=== PATIENT | male | born 1970 | race Caucasian/White ===

== ENCOUNTER 2025-03-08 19:25 | Emergency (ER) | payer SELFPAY ==
[~2025-03-08] VITALS: Ht 175.3 cm; Wt 105.7 kg
--- NOTE | 2025-03-08 20:06 | DVH ---
CHEST RADIOGRAPH INDICATION: CHEST PAIN TECHNIQUE: Single frontal view of the chest was obtained COMPARISON: None FINDINGS: Lines and Tubes: None. Lungs: Clear. Pleura: No pleural effusion or pneumothorax. Cardiomediastinal contours: Unremarkable. IMPRESSION: No abnormality demonstrated.
--- NOTE | 2025-03-08 20:28 | ECG ---
[facility] Test Date: 2025-03-08 Test Time: 20:27:51 Pat Name: FRANK FRIEDMAN Department: ED Room: Gender: M Show Girl: ANDERSON : 1970 Requested By: EMERGENCY EMERGENCY Order Number: [id number] Reading MD: Esa Coburn Measurements Intervals [place] Rate: 103 P: 44 NV: 159 QRS: -42 QRSD: 98 T: 79 QT: 337 QTc: 441 Interpretive Statements Sinus tachycardia Left axis deviation Electronically Signed On 03-11-2025 17:04:34 PST by Esa Coburn Please click the below link to view image of tracing.
--- NOTE | 2025-03-08 20:34 | ECG ---
[facility] Test Date: 2025-03-08 Test Time: 19:38:30 Pat Name: FRANK FRIEDMAN Department: ED Room: Gender: M Buffer Chrome: TRACY : 1970 Requested By: EMERGENCY EMERGENCY Order Number: [id number] Reading MD: Esa Coburn Measurements Intervals [place] Rate: 116 P: 41 MT: 152 QRS: -36 QRSD: 97 T: 80 QT: 317 QTc: 441 Interpretive Statements Sinus tachycardia Abnormal R-wave progression, late transition Inferior infarct, old Electronically Signed On 03-11-2025 17:03:15 PST by Esa Coburn Please click the below link to view image of tracing.
[2025-03-08 20:37] LABS: Hematocrit 46.6 % (41.0-53.0); Hemoglobin 15.8 g/dL (13.5-17.5); Mean Corpuscular Hemoglobin 30.3 pg (28.0-32.0); Mean Corpuscular Volume 89.2 fL (80.0-100.0); Nucleated Red Blood Cells % 0.0 %
[2025-03-08 20:42] LABS: Potassium 4.1 mmol/L (3.5-5.1); Sodium 141 mmol/L (136-145)
[2025-03-08 20:43] LABS: Anion Gap 7 (5-15); Carbon Dioxide 25 mmol/L (20-31)
[2025-03-08 20:44] LABS: Calcium 9.2 mg/dL (8.7-10.4)
[2025-03-08 20:48] LABS: Glucose 87 mg/dL (74-106)
[2025-03-08 20:49] LABS: BUN/Creatinine Ratio 10.9 (10.0-20.0); Blood Urea Nitrogen 14 mg/dL (9-23)
[2025-03-08 21:05] LABS: Chloride 109 mmol/L (98-107)
--- NOTE | 2025-03-08 22:02 | ED.PDOC ---
History of Present Illness HPI Comments 55 y/o obese M presents with 2x week history of nonradiating, right sided chest pain. Pertinent history for anxiety, hypercholesterolemia, and 4x stent placements 2x years ago. He denies any shortness of breath, arm or abdominal pain, nausea, vomiting, or further acute symptoms. Chief Complaint: Chest Pain Time Seen by MD: 19:30 Reviewed Notes: Nurses Notes, Medications, Allergies Allergies: Coded Allergies: NO KNOWN ALLERGIES (Verified , 06/12/09) Information Source: Patient Mode of Arrival: Ambulatory Severity: Moderate Timing: Weeks Duration: Since onset Prehospital treatment: None Past Medical History PAST MEDICAL HISTORY: Anxiety, High Lipids Past Medical History (Other): CURRENT MEDICATIONS: Lipitor, TriCor, Protonix, and Xanax. Surgical History (Other): stents Family History Family History: No family hx of Heart alessandra Social History Smoker: Non-Smoker Alcohol: Denies ETOH Use Drugs: Denies Drug Use Lives In: Home All Other Systems: Reviewed and Negative (As per HPI) Physical Exam General Appearance: Mild Distress, Obese HEENT: Normal ENT Inspection, Pharynx Normal, TMs Normal Neck: Full Range of Motion, Non-Tender, Normal, Normal Inspection Respiratory: Chest Non-Tender, Lungs Clear, No Accessory Muscle Use, No Respiratory Distress, Normal Breath Sounds Cardiovascular: No Edema, No JVD, No Murmur, No Gallop, Normal Peripheral Pulses, Regular Rate/Rhythm Breast Exam: Deferred Gastrointestinal: No Organomegaly, Non Tender, No Pulsatile Mass, Normal Bowel Sounds, Soft Genitalia: Deferred Pelvic: Deferred Rectal: Deferred Extremities: No calf tenderness, Normal capillary refill, Normal inspection, Normal range of motion, Non-tender, No pedal edema Musculoskeletal : Apperance: Normal Neurologic: Alert, 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 Was a procedure done?: No EKG EKG #1: Pulse Rate (adult): 116 [place]: Normal Cardiac Rhythm: ST Block: None Hypertrophy: None ST: Normal EKG #2: Pulse Rate (adult): 103 [place]: Normal Cardiac Rhythm: ST Block: None Hypertrophy: None ST: Normal Differential Dx Considerations may include: AMI, PE, ACS, URI, PNA, angina, anxiety, gastritis, gastroenteritis, GERD, cholelithiasis, cholecystitis, musculoskeletal pain, among others X-Ray, Labs, Meds, VS Vital Signs Date Time Temp Pulse Resp B/P (MAP) Pulse Ox O2 Delivery O2 Flow Rate FiO2 03/09/25 01:40 92 18 94 Room Air 03/08/25 23:42 98.5 90 16 135/74 (94) 94 98.5 03/08/25 22:45 98.4 92 18 130/88 (102) 94 98.4 03/08/25 22:30 86 03/08/25 22:02 103 03/08/25 20:27 103 03/08/25 19:38 116 03/08/25 19:25 98.6 120 20 137/104 97 98.6 Lab Test 03/08/25 23:45 03/08/25 20:50 03/08/25 19:52 Range/Units Urine Color Light-yellow Yellow Urine Clarity Clear Clear Urine pH 5.5 5.0-9.0 Urine Specific [place] 1.025 1.001-1.035 Urine Protein Negative Negative Urine Ketones 1+ H Negative Urine Blood Negative Negative /uL Urine Nitrite Negative Negative Urine Bilirubin Negative Negative Urine Urobilinogen Normal Negative mg/dL Urine Leukocyte Esterase Negative Negative /uL Urine RBC None seen 0 - 3 /hpf Urine Microscopic WBC < 1 0-3 /HPF Urine Squamous Epithelial Cells None seen <5 /hpf Urine Bacteria None seen None Seen /hpf Urine Glucose 4+ H Normal mg/dL Troponin I High Sensitivity < 3 L < 3 L </=54 ng/L White Blood Count 8.9 4.4-10.8 10^3/uL Red Blood Count 5.22 4.5-5.90 10^6/uL Hemoglobin 15.8 13.5-17.5 g/dL Hematocrit 46.6 41.0-53.0 % Mean Corpuscular Volume 89.2 80.0-100.0 fL Mean Corpuscular Hemoglobin 30.3 28.0-32.0 pg Mean Corpuscular Hemoglobin Concent 33.9 32.0-36.0 g/dL Red Cell Distribution Width 13.0 11.8-14.3 % Platelet Count 227 140-450 10^3/uL Mean Platelet Volume 8.5 6.9-10.8 fL Neutrophils (%) (Auto) 67.6 37.0-80.0 % Lymphocytes (%) (Auto) 24.5 10.0-50.0 % Monocytes (%) (Auto) 5.7 0.0-12.0 % Eosinophils (%) (Auto) 1.6 0.0-7.0 % Basophils (%) (Auto) 0.6 0.0-2.0 % Neutrophils # (Auto) 6.0 1.6-8.6 10 ^3/uL Lymphocytes # (Auto) 2.2 0.4-5.4 10 ^3/uL Monocytes # (Auto) 0.5 0-1.3 10 ^3/uL Eosinophils # (Auto) 0.1 0-0.8 10 ^3/uL Basophils # (Auto) 0.1 0-0.2 10 ^3/uL Nucleated Red Blood Cells 0.0 % Sodium Level 141 136-145 mmol/L Potassium Level 4.1 3.5-5.1 mmol/L Chloride Level 109 H 98-107 mmol/L Carbon Dioxide Level 25 20-31 mmol/L Anion Gap 7 5-15 Blood Urea Nitrogen 14 9-23 mg/dL Creatinine 1.29 0.700-1.30 mg/dL Glomerular Filtration Rate Calc 66 >90 mL/min BUN/Creatinine Ratio 10.9 10.0-20.0 Serum Glucose 87 74-106 mg/dL Calcium Level 9.2 8.7-10.4 mg/dL [place] [id number] Ph: [phone] DIAGNOSTIC IMAGING Diagnostic Imaging Report : [id number] Signed PATIENT: FRANK FRIEDMAN ACCT: [id number] UNIT: [id number] : 1970 LOC: ER ROOM / BED: / AGE / SEX: 55 / M ADM STATUS: REG ER SERVICE 32 ORDERING PHYSICIAN: ER PROCEDURE(s): CXRP - CHEST PORTABLE REASON: CHEST PAIN ORDER NUMBER(s): [id number], ACCESSION NUMBER(s): [id number] CHEST RADIOGRAPH INDICATION: CHEST PAIN TECHNIQUE: Single frontal view of the chest was obtained COMPARISON: None FINDINGS: Lines and Tubes: None. Lungs: Clear. Pleura: No pleural effusion or pneumothorax. Cardiomediastinal contours: Unremarkable. IMPRESSION: No abnormality demonstrated. ATED BY: KELECHI OROSCO MD DICTATED DATE/TIME: 03/08/252002 SIGNED BY: KELECHI OROSCO MD SIGNED DATE/TIME: 03/08/252002 CC: Time of 1ST Reevaluation: 20:00 Reevaluation 1ST: Unchanged Patient Education/Counseling: Diagnosis, Treatment, Need For Follow Up Family Education/Counseling: No Family Present SEPSIS Sepsis Screen Date sepsis recognized/suspect: Mar 08, 2025 Time Sepsis recognized/suspect: 1924 Recent Procedure: No On Antibiotic Therapy: No Respiratory Rate >20: No Heart Rate >90: Yes Temp<36 C (96.8 F) or >38.3 C: No SBP <90 or MAP <65 mmHG: No New Acute Mental Status Change: No Is the patient on CPAP, BIPAP,: No Physician Orders Chest Portable (03/08/25 19:33) Vital Signs Date Time Temp Pulse Resp B/P (MAP) Pulse Ox O2 Delivery O2 Flow Rate FiO2 03/09/25 01:40 92 18 94 Room Air 03/08/25 23:42 98.5 90 16 135/74 (94) 94 98.5 03/08/25 22:45 98.4 92 18 130/88 (102) 94 98.4 03/08/25 22:30 86 03/08/25 22:02 103 03/08/25 20:27 103 03/08/25 19:38 116 03/08/25 19:25 98.6 120 20 137/104 97 98.6 Laboratory Tests Test 03/08/25 19:52 White Blood Count 8.9 10^3/uL (4.4-10.8) Departure 1 Departure Time of Disposition: 22:00 Impression: Primary Impression: Chest pain Disposition: 01 HOME / SELF CARE / HOMELESS Condition: Stable Discharged With: Self Critical Care Note Critical Care Time?: No Stability Stability form required: No Heart Score Heart Score: Heart Score Response (Comments) Value History Moderate Suspicious 1 EKG Normal 0 Age 45-64 1 Risk Factors 1 or 2 risk factors 1 Troponin Normal limit 0 Total 3 I personally scribed for DEBRA GONZALES MD ([email or web address]) on 03/08/25 at 22:02. Electronically submitted by Cecilio Victoria [email or web address]). DEBRA GONZALES MD Mar 08, 2025 22:02
--- NOTE | 2025-03-08 22:31 | ECG ---
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
[2025-03-08 23:42] VITALS: BP 135/74; TEMP 98.5
[2025-03-09 01:24] LABS: Urine Protein, UAD Negative (Negative)
[2025-03-09 01:40] VITALS: PULSE 92; RESP 18; O2SAT 94
== END 2025-03-09 02:00 | disposition home or self-care (01) ==
LOC: ER 19:25
DX: R07.89 Other chest pain (principal); F41.9 Anxiety disorder, unspecified; E78.5 Hyperlipidemia, unspecified
CPT/HCPCS: 36415; 71045; 80048; 81001; 84484; 85025; 93005